=== PATIENT | male | born 1985 ===

== ENCOUNTER 2018-12-15 08:25 | Observation (INO) | payer OTHER ==
[~2018-12-15 08:25] MED LIST: Buffered Lidocaine 1% SYRIN* 1 ML/SYRINGE INTRADERM ONE; Lactated Ringers 1000 ML Bag* 1,000 ML IV SCH; Sodium Citrate/Citric Acid* 15 ML UDC PO ONE
[2018-12-15] MEDS ORDERED: Sodium Citrate/Citric Acid* 15 ML UDC ONE (10:29)
[2018-12-15] MEDS ORDERED: ceFAZolin 2 GM in NS PREMIX(*) 2 GM/100 ML BAG IVPB ONE (10:29)
[2018-12-15] MEDS ORDERED: Thrombin 5,000 UNITS* 1 APPLIC KIT - topical use - TOPICAL ONE (10:50)
[2018-12-15] MEDS ORDERED: Lidocain 1% EPI 1:100,000 * 30 ML MDV ONE (10:50)
[2018-12-15] MEDS ORDERED: Bacitracin INJECTION* 50,000 UNITS ONE (10:50)
[2018-12-15] MEDS ORDERED: Midazolam* 1 MG/ML 2 ML VIAL (2 MG) ONE (12:14)
[2018-12-15] MEDS ORDERED: fentaNYL* 50 MCG/ML 2 ML VIAL (100 MCG VIAL) ONE ×3 (12:14→14:37)
[2018-12-15] MEDS ORDERED: Propofol* 10 MG/ML 20 ML BTL ONE ×2 (12:27→13:22)
[2018-12-15] MEDS ORDERED: Lidocaine 2% PF * 5 ML VIAL ONE (12:29)
[2018-12-15] MEDS ORDERED: Levalbuterol 1.25MG/0.5ML NEB ONE (12:29)
[2018-12-15] MEDS ORDERED: Rocuronium* 10 MG/ML VIAL ONE (12:29)
[2018-12-15] MEDS ORDERED: Levalbuterol HFA INHALER* 1 PUFF MDI ONE (12:30)
[2018-12-15] MEDS ORDERED: Dexamethasone IV* 4 MG/ML 1 ML (4 MG) ONE (13:11)
[2018-12-15] MEDS ORDERED: Neostigmine Methylsulfate* 1 MG/ML 10 ML VIAL (1 mg/ml) ONE (13:17)
[2018-12-15] MEDS ORDERED: Glycopyrrolate IV* 0.2 MG/ML 1 ML VIAL ONE (13:39)
[2018-12-15] MEDS ORDERED: Ketorolac INJ* 30 MG/ML 1 ML VIAL ONE (13:40)
[2018-12-15] MEDS ORDERED: Ondansetron INJ* 2 MG/ML VIAL ONE (13:40)
[2018-12-15] MEDS ORDERED: Naloxone* 0.4 MG/ML 1 ML VIAL IV PRN (14:23)
[2018-12-15] MEDS ORDERED: DiMENhydriNATE IV* 50 MG/ML VIAL IV PUSH PRN (14:23)
[2018-12-15] MEDS: fentaNYL* 50 MCG/ML 2 ML VIAL (100 MCG VIAL) IV PRN ×3 (14:26→15:13)
[2018-12-15] MEDS ORDERED: Magnesium Hydroxide LIQ* 30 ML UDC PO PRN (14:34)
[2018-12-15] MEDS ORDERED: Ondansetron INJ* 2 MG/ML VIAL IV PRN (14:34)
[2018-12-15] MEDS ORDERED: Acetaminophen TAB* 325 MG PO PRN (14:34)
[2018-12-15] MEDS ORDERED: HYDROcodone/ACETAMIN 5-325 MG* 1 TAB PO PRN (14:34)
[2018-12-15] MEDS ORDERED: Albuterol HFA INHALER* 8 gm MDI INH PRN (14:36)
[2018-12-15] MEDS ORDERED: Lactated Ringers 1000 ML Bag* 1,000 ML IV SCH (15:00)
[2018-12-15] MEDS: Cyclobenzaprine TAB* 10 MG PO PRN ×2 (15:55→23:13)
[2018-12-15] MEDS: oxyCODONE/Acetamin 5/325 MG* TAB PO PRN ×2 (16:26→20:20)
[2018-12-16] MEDS: oxyCODONE/Acetamin 5/325 MG* TAB PO PRN ×2 (05:51→09:53)
--- NOTE | 2018-12-16 07:58 | PN ---
Progress Note - Progress Note Date of Service: 12/16/18 SOAP: Subjective: [S/p posterior cervical decompression C5-6, POD #1 Reports improvement in RUE pain although persistent numbness/tingling. Posterior neck pain, incisional soreness controlled with PO medication Eating and drinking well Denies nausea, headache Ambulates independently.] Objective: [ Vital Signs: Temp Pulse Resp BP Pulse Ox 98.6 F 60 18 104/58 96 12/16/18 03:30 12/16/18 03:30 12/16/18 05:51 12/16/18 03:30 12/16/18 03:30 General: Alert, laying comfortably in bed. NAD Neuro: Motor and sensory intact Incision: Intact with dez. No swelling, erythema. Drain dc today without complication Wound drain output 12/15/18 12/15/18 12/16/18 15:15 21:55 01:46 Output, DERIAN #1 20 30 15 12/16/18 05:29 Output, DERIAN #1 10 ] Assessment: [Satisfactory post-op] Plan: [1. Discharge to correctional facility today 2. Discharge instructions discussed]
[2018-12-16] MEDS: Cyclobenzaprine TAB* 10 MG PO PRN (08:21)
[2018-12-16] MEDS ORDERED: Pantoprazole TAB * 40 MG TAB PO SCH (09:00)
[2018-12-16 09:08] VITALS: BP 103/53
--- NOTE | 2018-12-21 22:29 | OP ---
DATE OF OPERATION: 12/15/18 - ROOM #331 DATE OF : 89 PRIMARY SURGEON: Mohinder Nael MD [employer] MAINTENANCE TECHNICIAN: SAMANTHA Carmona ANESTHESIA: General. PRE-OP DIAGNOSIS: Cervical spondylosis C5-6 on the right. POST-OP DIAGNOSIS: Cervical spondylosis C5-6 on the right. OPERATIVE PROCEDURE: Posterior cervical foraminotomy C5-6 on the right with microdissection. DESCRIPTION OF PROCEDURE: After satisfactory general anesthesia was obtained, the patient was placed on the operating table in the prone position with the chest supported on chest rolls and the head maintained in neutral utilizing Finney headrest. The posterior cervical region was then clipped, prepped, and draped in a sterile manner for posterior cervical exposure and a skin incision outlined from C5 to C6. This incision was infiltrated with 1% Xylocaine with epinephrine after which it was turned down sharply to the level of cervical fascia. The fascia was divided along the spinous processes of C5 and C6 and the paraspinal musculature was stripped away from these posterior elements using periosteal elevator and monopolar cautery. An intraoperative x- ray was obtained verifying proper interspace localization, after which a partial hemilaminectomy was carried out by removing the inferior aspect of the C5 lamina and superior aspect of the C6 lamina as well as the medial aspect of the facet complex. This was done using a combination of the Midas Jonathan drill and Kerrison rongeurs. Ligamentum flavum was then removed with the Kerrison. At this point of procedure, the operating microscope was brought into the field and the remainder of the procedure was done under microscopic visualization. Projecting into the shoulder region of the exposure was a significant spur. The C6 nerve root was decompressed until it was free in its course. This was done utilizing 2 and 3 mm Kerrison rongeurs. The region of the offending spur was palpated to make sure there was no soft disk component and there did not appear to be. After assuring adequate hemostasis, the wound was thoroughly irrigated and a piece of Gelfoam was placed over the laminectomy defect. A drain was placed in the epidural space and tunneled out towards the right side. The fascia was then reapproximated with 0 Vicryl suture, the subcutaneous tissue was closed with 3-0 Vicryl suture, and the skin closed with skin clips. The estimated blood loss was less than 50 cc and the final sponge, padding, and needle counts were correct. The patient was taken to the recovery room extubated and in stable condition. [id number]/[facility] #: [id number] [facility]ITALCorn[facility]
--- NOTE | 2019-01-15 21:48 | DS ---
DISCHARGE SUMMARY: DATE OF ADMISSION: 12/15/18 DATE OF DISCHARGE: 12/16/18 ATTENDING PHYSICIAN: Dr. Neal.* (DICTATED BY SAMANTHA RUCKER) DISCHARGE DIAGNOSIS: Cervical spondylosis with radiculopathy C5-6. SPECIAL PROCEDURE: Posterior cervical foraminotomy C5-6. HOSPITAL COURSE: This 33-year-old male was seen in the office with right-sided cervical radiculopathy consistent with MRI findings of cervical spondylosis of C5-6 to the right. He had not improved with several months of conservative treatments and therefore, elected for surgical intervention. On the day of admission, he was taken to surgery where under general anesthesia, a posterior cervical foraminotomy at C5-6 on the right revision was carried out. Postoperatively, he was feeling well. The right upper extremity symptoms were improved. He was eating, drinking, and voiding without difficulty. On the first postoperative day, the wound drain was discontinued and he was discharged back to the correctional facility. Patient was stable at time of discharge. Discharge medications recommendations were made. Discharge instructions including wound care and activity level were discussed with the patient and information on these were provided. He will be seen in office in approximately 2 weeks for followup. SAMANTHA RUCKER [id number]/[facility] #: [id number] [facility]
== END 2018-12-16 12:20 ==
LOC: OR 08:25 → EEVIPCON 15:34 → SSU 15:34
PROVIDERS: ADMIT Neurological Surgery; ATTEND Neurological Surgery
DX: M47.22 Other spondylosis with radiculopathy, cervical region (principal); Z87.891 Personal history of nicotine dependence; Z86.73 Personal history of transient ischemic attack (TIA), and cerebral infarction without residual deficits; Z86.14 Personal history of Methicillin resistant Staphylococcus aureus infection
CPT/HCPCS: 72020; A9270-GY; G0378; J0690; J1100; J1885; J2250; J2405; J2704; J2710; J3010